=== PATIENT | female | born 1965 | race Caucasian/White ===

== ENCOUNTER 2019-04-29 01:28 | Day surgery (SDC) | payer OTHER, SELFPAY ==
[2019-04-23 15:20] VITALS: BMI 27.1
--- NOTE | 2019-04-28 17:28 | P.PNAN_ITS ---
Anes - Eval Pre Procedure Procedure: Operation Date: 04/29/19 08:00 Proposed Procedures p Screening Colonoscopy - Amandeep Damon MD Date/Time: 04/28/19 17:28 Pre Op Diagnosis: Hx of Polyps Patient Data Age: 54 Gender: F Height: 5 ft 1 in Weight: 65 kg Allergies Allergy/AdvReac Type Severity Reaction Status Date / Time Sulfa (Sulfonamide Allergy decreased Verified 04/23/19 15:16 Antibiotics) wbc's Home Medications Medication Instructions Recorded Confirmed Type calcium carb,cit-mag cit,ox-D3 1 tablet PO DAILY 04/23/19 04/23/19 History fenofibrate micronized 134 mg PO DAILY 04/23/19 04/23/19 History multivitamin 1 cap PO DAILY 04/23/19 04/23/19 History omega 1-nxg-mqj-fish oil [Fish Oil] 1 cap PO DAILY 04/23/19 04/23/19 History phentermine 15 mg PO DAILY 04/23/19 04/23/19 History Patient hx anesthesia problems: none Family hx anesthesia problems: none [facility] Past Medical History Medical History Colon polyps Ganglion cyst Overweight (BMI 25.0-29.9) Surgical History Surgical History History of cholecystectomy Status post hysteroscopic ablation of endometrium Exam Day of Procedure 04/28/19 17:28
[2019-04-29 07:00] VITALS: BP 143/86; PULSE 81; RESP 18; TEMP 37; O2SAT 100
--- NOTE | 2019-04-29 07:05 | P.HP_ITS ---
History of Present Illness History of Present Illness Consent: Risks, benefits, and alternatives have been discussed and questions answered. Patient agrees to proceed with procedure. Chief complaint: Hx of Polyps Narrative: Inez Haley is a 54 year old W female referred for screening colonoscopy secondary to history of colonic polyps. Patient had colonoscopy 5 years ago in [place] which time an adenomatous polyp was removed. Patient is asymptomatic. There is a family history of colon polyps in her sister. [facility] Past Medical History Medical History Colon polyps Ganglion cyst Overweight (BMI 25.0-29.9) Surgical History Surgical History History of cholecystectomy Status post hysteroscopic ablation of endometrium Meds Home Medications and Allergies Home Medications Medication Instructions Recorded Confirmed Type calcium carb,cit-mag cit,ox-D3 1 tablet PO DAILY 04/23/19 04/23/19 History fenofibrate micronized 134 mg PO DAILY 04/23/19 04/23/19 History multivitamin 1 cap PO DAILY 04/23/19 04/23/19 History omega 0-uoy-igs-fish oil [Fish Oil] 1 cap PO DAILY 04/23/19 04/23/19 History phentermine 15 mg PO DAILY 04/23/19 04/23/19 History Allergies Allergy/AdvReac Type Severity Reaction Status Date / Time Sulfa (Sulfonamide Allergy decreased Verified 04/29/19 06:58 Antibiotics) wbc's Exam Const: Orientation/consciousness: patient oriented x3 Resp: Auscultation: clear to auscultation bilaterally Cardio: Rate: regular rate Rhythm: regular rhythm Heart sounds: no murmurs GI: GI Palp: Yes Soft to palpation, No Tenderness to palpation present (GI), Yes No hepatosplenomegaly present and No Palpable mass present Auscultation: normal bowel sounds Neuro: General: patient oriented x3 and no focal motor deficits Extrem: General: no pedal edema Assessment and Plan Additional Plan Screening colonoscopy secondary to personal history of colonic polyps and colon polyps in her sister.
--- NOTE | 2019-04-29 07:07 | WPDANESEFPP ---
Anes - Eval Final PreProcedure Day of Procedure 04/29/19 07:07 Patient weight: overweight Heart: regular rate and rhythm Lungs: clear to auscultation Airway: Mallampati scale class 1 Neurological: alert and oriented Last oral intake: 6 hours ASA classification: II Emergent: no Anesthetic plan: proceed Anesthesia type and monitoring: general GIVS Informed Consent: The patient's anesthetic plan and its attendant risks and benefits were discussed with the patient/family/POA. Questions were solicited and answers provided to the satisfaction of the patient/family/POA.
[2019-04-29] MEDS: LACTATED RINGERS 1,000 ML 150 ML IV CONT (07:25)
[2019-04-29] MEDS: SIMETHICONE ORAL SUSPENSION 20 MG/0.3 ML 30 ML BOTTLE 0.6 ML IRRIGATION (07:59)
[2019-04-29 08:14] VITALS: BP 99/58; PULSE 82; RESP 16; O2SAT 98
[2019-04-29 08:24] VITALS: BP 99/69; PULSE 92; RESP 19; O2SAT 99
[2019-04-29 08:34] VITALS: BP 103/60; PULSE 79; RESP 19; O2SAT 99
== END 2019-04-29 08:49 | disposition home or self-care (01) ==
PROVIDERS: PCP Internal Medicine; Visit Provider Internal Medicine Gastroenterology
PROC: 0DJD8ZZ Inspection of Lower Intestinal Tract, Via Natural or Artificial Opening Endoscopic (ICD-10-PCS; CPT 45378; principal; 2019-04-29 08:00)
DX: Z12.11 Encounter for screening for malignant neoplasm of colon (principal); K63.5 Polyp of colon; K57.30 Diverticulosis of large intestine without perforation or abscess without bleeding; K64.4 Residual hemorrhoidal skin tags; Z83.71 Family history of colonic polyps
CPT/HCPCS: 45380; 88305; J2001; J2704; J7120

== ENCOUNTER → 2019-09-13 14:41 | Outpatient (CLI) | payer OTHER, SELFPAY ==
--- NOTE | ~2019-09-13 | MR_ITS ---
EXAMINATION: MR ankle RT wo con DATE: 09/13/2019 15:55 INDICATION: Anterior and lateral right ankle pain. Ganglion cyst. TECHNIQUE: Magnetic resonance imaging (MRI) of the right ankle was performed without intravenous cont rast. Sequences included sagittal, coronal, and axial proton-density weighted fast spin echo without and with fat saturation. COMPARISON: None. FINDINGS: Medial ankle ligaments: Deep and superficial deltoid ligaments as well as the spring ligament are normal. Lateral ankle ligaments: The anterior and posterior inferior tibiofibular ligaments are normal. The anterior talofibular, calc aneofibular and posterior talofibular ligaments are normal. Tendons: Achilles tendon is normal. The peroneus longus tendon is normal. Mild tendinopathy and longitudinal s plit tearing of the peroneus brevis tendon. The tibialis anterior and extensor hallucis longus and ex tensor digitorum longus tendons are normal. The tibialis posterior, flexor digitorum longus and flexo r hallucis longus tendons are normal. Plantar fascia: Plantar aponeurosis is normal with tiny spur at its calcaneal origin. Bones/other: Alignment is normal. No fracture. Mild osteoarthritis at the first tarsal metatarsal, navicular cunei form and calcaneocuboid joints with subarticular cystic changes underlying the articular surface of t he medial cuneiform, at the navicula along its articulation with the medial cuneiform and at the prox imal articular surface of the cuboid. No abnormal masses identified. Fluid: Small ankle joint effusion with fluid collecting primarily in the lateral aspect of the anterior rece ss which underlies the marker indicating the region of concern. No ganglion cysts identified. IMPRESSION: 1. Small ankle joint effusion with fluid collecting in the lateral aspect of the anterior recess whic h underlies the marker indicating the region of concern. No abnormal mass or ganglion cyst. 2. Mild tendinopathy and longitudinal split tearing of the peroneus brevis tendon. 3. Mild polyarticular osteoarthritis. Reviewed, dictated and finalized at location A. IMPRESSION: 1. Small ankle joint effusion with fluid collecting in the lateral aspect of th e anterior recess which underlies the marker indicating the region of concern. No abnormal mass or ganglion cyst. 2. Mild tendinopathy and longitudinal split tearing of the peroneus brevis tend on. 3. Mild polyarticular osteoarthritis.
--- NOTE | ~2019-09-13 | MR_ITS ---
EXAMINATION: MR ankle LT wo con DATE: 09/13/2019 15:33 INDICATION: Anterolateral left ankle pain. Ganglion cyst. TECHNIQUE: Magnetic resonance imaging (MRI) of the left ankle was performed without intravenous contr ast. Sequences included sagittal, coronal, and axial proton-density weighted fast spin echo without a nd with fat saturation. COMPARISON: None. FINDINGS: Medial ankle ligaments: Deep and superficial deltoid ligaments as well as the spring ligament are normal. Lateral ankle ligaments: The anterior and posterior inferior tibiofibular ligaments are normal. The anterior talofibular, calc aneofibular and posterior talofibular ligaments are normal. Tendons: Achilles tendon is normal. Small amount of fluid consistent with mild tenosynovitis extending along t he peroneal tendon sheath. The peroneus longus tendon is normal. There is mild tendinopathy and longi tudinal split tearing of the peroneus brevis tendon. The tibialis anterior and extensor hallucis long us and extensor digitorum longus tendons are normal. The tibialis posterior, flexor digitorum longus and flexor hallucis longus tendons are normal. Plantar fascia: Plantar aponeurosis is normal with tiny enthesophyte at its calcaneal origin. Bones/other: Bone alignment is normal. No fracture. Normal marrow signal throughout. Joint spaces are normal. No a bnormal masses identified. Fluid: Small tibiotalar joint effusion collecting primarily in the central to lateral aspect of the anterior recess underlying the marker indicating the region of concern. No ganglion cysts identified. IMPRESSION: 1. Small left ankle joint effusion accumulating in the anterior recess underlying the marker indicati ng the region of concern. No abnormal mass or fluid collections identified. 2. Mild peroneal tenosynovitis with mild tendinopathy and longitudinal split tearing of the peroneus brevis tendon. Reviewed, dictated and finalized at location A. IMPRESSION: 1. Small left ankle joint effusion accumulating in the anterior recess underlyi ng the marker indicating the region of concern. No abnormal mass or fluid colle ctions identified. 2. Mild peroneal tenosynovitis with mild tendinopathy and longitudinal split te aring of the peroneus brevis tendon.
== END ==
PROVIDERS: PCP Internal Medicine; Visit Provider Podiatrist Foot & Ankle Surgery
DX: M67.479 Ganglion, unspecified ankle and foot (principal); M25.472 Effusion, left ankle; M65.872 Other synovitis and tenosynovitis, left ankle and foot; M25.471 Effusion, right ankle; M19.071 Primary osteoarthritis, right ankle and foot
CPT/HCPCS: 73721

== ENCOUNTER 2019-10-20 01:09 | Outpatient (CLI) | payer OTHER, SELFPAY ==
[2019-10-20 19:19] LABS: SARS-CoV-2 RNA PCR Negative
== END 2019-10-20 01:10 | disposition home or self-care (01) ==
LOC: ANHCOVIDDT 01:09
PROVIDERS: PCP Internal Medicine; Visit Provider Podiatrist Foot & Ankle Surgery
DX: Z01.812 Encounter for preprocedural laboratory examination (principal); Z11.59 Encounter for screening for other viral diseases
CPT/HCPCS: 87635; C9803; U0003

== ENCOUNTER 2019-10-22 02:21 | Day surgery (SDC) | payer OTHER, SELFPAY ==
[2019-10-06 17:54] VITALS: BMI 26.4
--- NOTE | 2019-10-21 11:18 | P.PNAN_ITS ---
Anes - Initial Pre Proc Eval Procedure: Operation Date: 10/22/19 09:30 Proposed Procedures p Dann Nahum Bunionectomy Right Foot - Laron Burciaga JR, MD Date/Time: 10/21/19 11:18 Surgeon: Laron Burciaga JR, MD Pre Op Diagnosis: bunion right foot Patient Data Age: 54 Gender: F Height: 1.55 m Weight: 63.63 kg Allergies Allergy/AdvReac Type Severity Reaction Status Date / Time Sulfa (Sulfonamide Allergy Intermediate decreased Verified 10/22/19 07:58 Antibiotics) wbc's Home Medications Medication Instructions Recorded Confirmed Type calcium carb,cit-mag cit,ox-D3 1 tablet PO DAILY 04/23/19 10/22/19 History multivitamin 1 cap PO DAILY 04/23/19 10/22/19 History phentermine 15 mg PO DAILY 04/23/19 10/22/19 History alprazolam [Xanax] 0.25 mg PRN 10/06/19 10/22/19 History icosapent ethyl [Vascepa] 2 g PO BID 10/06/19 10/22/19 History Patient hx anesthesia problems: none Family hx anesthesia problems: none [facility] Past Medical History Medical History (Updated 10/21/19 @ 11:18 by Bob Walls DO) Anxiety Colon polyps Ganglion cyst Overweight (BMI 25.0-29.9) Surgical History Surgical History History of cholecystectomy Status post hysteroscopic ablation of endometrium Social History Social History Smoking status: Never smoker Alcohol intake: never Substance use: never Living arrangements: with family Spiritual care concerns: No Anes - Eval Final PreProcedure Day of Procedure 10/21/19 11:18 Patient weight: overweight Heart: regular rate and rhythm Lungs: clear to auscultation and normal air movement Airway: Mallampati scale class II Neurological: alert and oriented Last oral intake: >/= 8 hours ASA classification: II Emergent: no Anesthetic plan: proceed Anesthesia type and monitoring: general LMA and standard monitoring Informed Consent: The patient's anesthetic plan and its attendant risks and benefits were discussed with the patient/family/POA. Questions were solicited and answers provided to the satisfaction of the patient/family/POA.
--- NOTE | 2019-10-21 11:19 | WPDANESPNB ---
Anes - Peripheral Nerve Block Date/Time: 10/21/19 11:19 I have discussed with the patient/family/POA the placement of a peripheral nerve block for post-operative pain management, including associated risks, benefits, complications, and side effects. Alternative methods of post-operative analgesia were detailed. Questions were solicited and answers provided to the satisfaction of the patient/family/POA. Time-Out: A pre-procedural Time-Out was completed immediately before starting the procedure and confirmed: Patient Identification, Site, Procedure, Patient Position and the Availability of Requisite Equipment. Clinical Indications: Acute post-operative pain management requested by the operative surgeon. Nerve Block Insertion Note Anes-nerve block: posterior fossa sciatic right and adductor canal right Patient position: supine (for adductor canal) and other (right lateral for popliteal) Skin prep: chlorhexidine Needle: 22 gauge, stimulating, insulated echogenic needle. Needle length: 80 mm Technique: nerve stimulation lost at (mA) (for popliteal lost at 0.2) and ultrasound Injectate: bupivacaine 0.5% with epi 5 mcg/ml (20 mL for popliteal, 10 mL for adductor canal) Observations: tolerated well Complications: none Procedure start time:: 1021 Procedure end time:: 1030
[2019-10-22] VITALS (8 sets, daily range): BP systolic 90–123; BP diastolic 53–72; PULSE 62–80; RESP 12–16; TEMP 37.2; O2SAT 99–100
--- NOTE | ~2019-10-22 | XR_ITS ---
EXAMINATION: XR surgery orthopedic DATE: 10/22/2019 11:44 INDICATION: Right-sided hallux valgus. TECHNIQUE: 3 intraoperative fluoroscopic views of right foot were obtained. I was not present. Fluoro scopy exposure time was 3 seconds. COMPARISON: None. FINDINGS: There is an osteotomy of first metatarsal with fixation with 2 screws. There is an osteotom y of first proximal phalanx with fixation with a staple. IMPRESSION: 1. Osteotomies of first metatarsal and first proximal phalanx with interval fixation. Reviewed, dictated and finalized at location A. IMPRESSION: 1. Osteotomies of first metatarsal and first proximal phalanx with interval fix ation.
--- NOTE | 2019-10-22 07:15 | WPDHPUPDATE1 ---
History and Physical Update Update Date/Time: 10/22/19 07:15 History and Physical has been reviewed, including an updated exam of the patient. There are NO changes in the patient's condition. Risks, benefits, and alternatives have been discussed and questions answered. Patient agrees to proceed with procedure.
[2019-10-22] MEDS: LACTATED RINGERS 1,000 ML 30 ML IV CONT ×2 (08:20→11:55)
[2019-10-22] MEDS: ceFAZolin 2 GM/D5W 50 ML 2 GM/50 ML BAG IVPB (10:40)
--- NOTE | 2019-10-22 11:46 | PM.OP ---
Procedure Note - Brief Procedure Note - Brief Date of procedure: 10/22/19 Pre-op diagnosis: bunion right foot Post-op diagnosis: same Procedure performed: Dann Nahum Bunionectomy right foot Anesthesia: GLMA Surgeon: Laron Burciaga JR, DPM Estimated blood loss (mL): 1 Complications: No immediate complications Condition: stable Disposition: same day
--- NOTE | 2019-10-25 06:16 | OP_ITS ---
DATE OF PROCEDURE: 10/22/2019 PREOPERATIVE DIAGNOSIS: Hallux abductovalgus deformity of the right foot. POSTOPERATIVE DIAGNOSIS: Hallux abductovalgus deformity of the right foot. PROCEDURES: Dann Nahum bunionectomy of the right foot. PATHOLOGY: None. ANESTHESIA: General with popliteal fossa block. HEMOSTASIS: Pneumatic ankle tourniquet at 250 mmHg. ESTIMATED BLOOD LOSS: Minimal. MATERIALS USED: 3-0 PDS, 4-0 Vicryl and 4-0 Monocryl. INJECTABLES: None. COMPLICATIONS: None. PROCEDURE IN DETAIL: Under mild sedation, the patient was brought into the operating room, placed in the operating table in the supine position. Pneumatic ankle tourniquet was placed about the patient's right ankle. Following general anesthesia and a previous popliteal fossa block, the right foot was then scrubbed, prepped, and draped in the usual aseptic manner. An Esmarch bandage was then used to examine the patient's right foot and the pneumatic ankle tourniquet was then inflated. Surgery began in the following manner. Attention was directed to the dorsal medial aspect of the first metatarsophalangeal joint of the right foot, where a 6 cm longitudinal incision was made medial and parallel to the tendon of extensor hallucis longus and involved the contour of the deformity. Incision was deepened through subcutaneous tissue using sharp and blunt dissection. All bleeders were ligated and cauterized as necessary. At this time, a linear capsulotomy was performed over the medial aspect of the first metatarsophalangeal joint of the right foot. The periosteum and capsular structures were then carefully dissected free of their osseous attachments and reflected medially and laterally thus exposing the head of the first metatarsal at the operative site. Next, a sagittal bone saw was used to resect the medial eminence. Attention was then directed to the first interspace via the original skin incision where the tendon of extensor hallucis brevis was initially identified and transected. The dissection was continued deep using blunt dissection down to the level of fibular sesamoid, which was freed of its soft tissue attachments both proximally, laterally and distally. The conjoined tendon of the adductor hallucis muscle was identified and transected at its attachment to the base of the proximal phalanx of the hallux. At this time, the lateral contracture present to the hallux was noted to be reduced and the sesamoid apparatus was noted to float into a more corrected medial position. Attention was then directed to the medial aspect of the first metatarsal head of the right foot where through and through V type osteotomy was created in the metaphyseal region of the bone utilizing a sagittal bone saw. The apex of the osteotomy pointed distally and with the arms pointing proximal plantarly and proximal dorsally. The dorsal arm was made longer to accommodate internal fixation. Upon completion of the osteotomy, the capital fragment was distracted and shifted laterally into more corrected position and impacted upon the first metatarsal shaft. At this time, three 0.045 inch K-wires were driven from dorsal to plantar across the osteotomy site with excellent compression noted. Next, the next two 3.0 mm [place] partially-threaded cannulated screws were driven from dorsal to plantar through the temporary fixation/guidewires. Excellent compression was noted. At this time, the K-wires were removed. The medial eminence was resected and smoothed out utilizing a power bur. At this point, the decision was made to continue with an Nahum phalangeal osteotomy in the base of the proximal phalanx. A 2 mm resection of bone was made with the base pointing medially and apex pointing laterally preserving the lateral cortical rose
== END 2019-10-22 13:57 | disposition home or self-care (01) ==
PROVIDERS: PCP Internal Medicine; Visit Provider Podiatrist Foot & Ankle Surgery
PROC: (CPT 28299; principal; 2019-10-22 09:30)
DX: M20.11 Hallux valgus (acquired), right foot (principal); G89.18 Other acute postprocedural pain; F41.9 Anxiety disorder, unspecified
CPT/HCPCS: 28299; 64447; 64450; C1713; J0690; J1100; J2250; J2370; J2405; J2704; J3010; J7120